=== PATIENT | female | born 1970 | race Two or more races ===

== ENCOUNTER 2024-02-05 12:40 | Emergency (ER) | payer OTHER ==
[~2024-02-05] VITALS: Ht 160 cm; Wt 56.6 kg
[2024-02-05 12:49] VITALS: BP 123/81; PULSE 64; RESP 20; TEMP 98.6; O2SAT 100
[2024-02-05] MEDS: BACITRACIN 0.9 GM PACKET OINTMENT TP ONE (15:55)
[2024-02-05] MEDS: RABIES VACCINE, HUMAN DIPLOID/PF 2.5 UNITS/ML VIAL IM. ONE (15:56)
[2024-02-05] MEDS: RABIES IMMUNE GLOBULIN/PF 150 UNIT/ML 10 ML VIAL IM. ONE (15:57)
[2024-02-05] MEDS: AMOX TR/POT CLAV 875 MG/125 MG TABLET PO ONE (15:59)
[2024-02-05] MEDS ORDERED: ACET-2247 PO (16:00)
[2024-02-05] MEDS ORDERED: AMOX-457 PO (16:00)
[2024-02-05] MEDS: PERTUSS(ACELL),DIPH,TET/PF 0.5 ML SYRINGE [ADULT] IM. ONE (16:00)
== END 2024-02-05 16:13 | disposition home or self-care (01) ==
LOC: EMS 12:40
DX: S51.052A Open bite, left elbow, initial encounter (principal); S80.02XA Contusion of left knee, initial encounter; W54.0XXA Bitten by dog, initial encounter; Y93.89 Activity, other specified; Y92.89 Other specified places as the place of occurrence of the external cause; Y99.8 Other external cause status
CPT/HCPCS: 90375; 90471; 90472; 90675; 90715; 96372; 99284